=== PATIENT | female | born 1995 | race Caucasian/White ===

== ENCOUNTER 2021-06-27 17:16 | Observation (INO) | payer OTHER ==
[~2021-06-27] VITALS: Ht 160 cm; Wt 65.9 kg
[2021-06-27 18:15] LABS: COLLECTION METHOD CLEAN CATCH
[2021-06-27 18:22] LABS: BASO % 0.3 % (0.0-2.0); EOS % 0.3 % (0-4.0); GRAN # 10.6 (1.4-6.5); GRAN % 73.6 % (42.2-75.2); HEMATOCRIT 40.1 % (37.0-47.0); HEMOGLOBIN 13.1 g/dl (12.5-16.0); LYMPH # 2.8 (1.2-3.4); LYMPH % 19.7 % (20.0-51.0); MEAN CELL VOLUME 87 fl (80.0-100.0); MEAN CORPUSCULAR HEMOGLOBIN 29 pg (27.0-31.0); MEAN CORPUSCULAR HGB CONC 33 g/dl (33.0-37.0); MEAN PLATELET VOLUME 9.6 fl (7.4-10.4); MONO # 0.8 (0.1-0.6); MONO % 5.8 % (1.7-9.3); PLATELET COUNT 364 K/mm3 (130-400); RED BLOOD COUNT 4.59 M/mm3 (4.10-5.30); REDCELL DISTRIBUTION WIDTH-CV 12.4 % (11.5-14.5)
[2021-06-27 18:23] LABS: MUCOUS Present /lpf; PH 6 (5-8); URINE APPEARANCE Hazy; URINE BACTERIA Rare /hpf; URINE BILIRUBIN Negative (NEGATIVE); URINE BLOOD 2+ (NEGATIVE); URINE COLOR Yellow; URINE GLUCOSE Negative (NEGATIVE); URINE KETONE 1+ (NEGATIVE); URINE LEUKOCYTE ESTERASE Trace (NEGATIVE); URINE NITRATE Negative (NEGATIVE); URINE PROTEIN(semi-quant) Negative (NEGATIVE); URINE UROBILINOGEN Negative (NEGATIVE)
[2021-06-27 18:33] LABS: ALBUMIN 4.7 gm/dL (3.5-5.0); BILIRUBIN,TOTAL 0.2 mg/dL (0.0-1.0); C-REACTIVE PROTEIN 5.5 mg/dL (0.0-0.9); CALCIUM 9.6 mg/dL (8.4-10.2); CREATININE, serum 0.56 (0.52-1.25); POTASSIUM 4.1 mmol/L (3.4-5.0); TOTAL PROTEIN 8.8 gm/dL (6.4-8.2)
[2021-06-27] MEDS ORDERED: NORCO 325 MG-51 TAB PO (21:22)
[2021-06-27] MEDS ORDERED: MOTRIN 600600 MG/TAB PO (21:22)
[2021-06-27] MEDS ORDERED: COLACE 100100 MG/CAP PO (21:23)
[2021-06-27 22:02] VITALS: BP 118/76; PULSE 85; TEMP 98.4
[2021-06-27 22:27] VITALS: BP 126/74; PULSE 67; TEMP 98.1
--- NOTE | 2021-06-27 22:43 | NUR ---
Patient came up on the floor from surgery at 2200. Alert and oriented. She have 3x puncture site in her belly and glued. Audile bowel sounds. VS are stable she is on room air at 99%. Complains of discomfort in her belly otherwise denies pain. Patient ask for food to eat, she is in general diet. Wanted to have noodles and chicken broth with crackers provided. Will continue to monitor.
[2021-06-27 22:45] VITALS: BP 118/71; PULSE 68; TEMP 98.4
[2021-06-27 23:00] VITALS: BP 118/72; PULSE 87; TEMP 98.5
[2021-06-28] VITALS: BP 123/76; PULSE 72; TEMP 98.8
[2021-06-28 03:31] VITALS: BP 102/44; PULSE 77
[2021-06-28 08:00] VITALS: BP 97/42; PULSE 63; TEMP 98.5
--- NOTE | 2021-06-28 08:00 | NUR ---
PATIENT IS ORIENTED BUT DROWSY THIS AM. NOTED LOW B/P OF 97/42 THIS AM. PATIENT IS YOUNG, THIN & OTHERWISE HEALTHY WITH ALL OTHER VSS. RURAL SOCIOLOGIST REQUIRED PATIENT ONLY RECEIVED A SMALL DOSE OF ANESTHESIA FOR PROCEDURE AND REQUIRED SOME NARCAN. TAKING ORAL NARCOTICS SLOW. ABD LAP SITES ARE WELL APPROXIMATED WITH GLUED CLOSURE. HEAD TO TOE ASSESSMENT WNL. NO C/O N/V. IV FLUIDS INFUSING INTO LEFT HAND IV. PATIENT ENCOURAGED TO ORDER BREAKFAST. PATIENT HOPING TO DISCHARGE HOME TODAY.
--- NOTE | 2021-06-28 09:11 | NUR ---
weld lay out worker met with patient to discuss discharge plan. 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 Patient is originally from [place], [place]. Both her mother (Cherrie [phone]) and father (Wagner [phone]) are located there. Patient is fully independent and has no trouble affording medications. Patient does not have a DPOA-HC but is interested in getting one. weld lay out worker educated patient that since she is unmarried with no kids her parent's are legally her agent. weld lay out worker provided form per patients request. Plan is to discharge home. *Discharge plan: Home*
--- NOTE | 2021-06-28 10:45 | NUR ---
PATIENT DISCHARGING HOME VIA AMBULATORY WITH COLLEGE ROOMMATE TO PERSONAL VEHICLE. GAVE DISCHARGE INSTRUCTIONS, E-SCRIPTS SENT, AND DISCUSSED F/U APT. ANSWERED QUESTIONS/CONCERNS. DC'D IV SITE AND COVERED WITH G[employer]ZE [employer] COBAN. PATIENT IS DRESSED, PACKED AND DISCHARGED.
== END 2021-06-28 10:45 | disposition home or self-care (01) ==
LOC: COL.ER 17:16 → SDCO 19:59 → SURG 20:00 → SDCO 20:01 → SURG 06-28 10:45
PROVIDERS: Physician Assistant; ADMIT Surgery
DX: K35.80 Unspecified acute appendicitis (principal); D72.829 Elevated white blood cell count, unspecified
CPT/HCPCS: G0378; J0330; J1100; J1885; J2250; J2270; J2310; J2405; J2543; J2704; J3010; J7030; J7120; Q9967